=== PATIENT | female | born 1975 | race Asian ===

== ENCOUNTER → 2018-04-28 | Outpatient (CLI) | payer OTHER | END | disposition home or self-care (01) | LOC: RAD 10:46 | PROVIDERS: ATTEND Family Medicine | DX: M25.551 Pain in right hip (principal); M54.9 Dorsalgia, unspecified; M25.552 Pain in left hip; M89.9 Disorder of bone, unspecified | CPT/HCPCS: 72100; 73523 ==

== ENCOUNTER → 2018-05-19 | Outpatient (CLI) | payer OTHER | END | disposition home or self-care (01) | LOC: CFH 10:19 | PROVIDERS: ATTEND Family Medicine | DX: Z12.31 Encounter for screening mammogram for malignant neoplasm of breast (principal) | CPT/HCPCS: 77067 ==